=== PATIENT | female | born 1935 | race Caucasian/White ===

== ENCOUNTER → 2019-11-08 | Outpatient (CLI) | payer MEDICARE ==
--- NOTE | 2019-11-08 11:01 | XR ---
EXAMINATION TYPE: XR lumbosacral spine min 4V DATE OF EXAM: 11/08/2019 CLINICAL HISTORY: pain COMPARISON: NONE TECHNIQUE: Frontal, lateral, and oblique images of the lumbar spine are obtained. FINDINGS: There are 5 lumbar type vertebral bodies identified. The lumbar spine shows satisfactory alignment without evidence of acute fracture or dislocation. Grade 1 anterolisthesis L4 and L5 measur ing 4 mm. Vertebral body heights are within normal limits. Severe multilevel degenerative disc diseas e and spondylosis. Suspect bilateral nephrolithiasis. The overlying soft tissue appears unremarkabl e. IMPRESSION: No acute fracture or dislocation is seen in the lumbar spine.ICD 10 NO FRACTURE, INITIAL EVALUATION
== END | disposition home or self-care (01) ==
LOC: RADXRMAIN 10:34
PROVIDERS: ATTEND Internal Medicine
DX: M54.5 Low back pain (principal)
CPT/HCPCS: 72110

== ENCOUNTER → 2020-06-26 | Outpatient (CLI) | payer MEDICARE ==
--- NOTE | 2020-06-27 04:17 | MR ---
EXAMINATION TYPE: MR brain and iac wo/w con DATE OF EXAM: 06/26/2020 COMPARISON: Hearing loss HISTORY: Auditory hallucinations, bilateral hearing loss, and tinnitus. CONTRAST: Standard multiplanar, multisequence MRI departmental protocol utilizing 6.5 mL intravenous Gadavist g adolinium contrast. There is cerebral cortical atrophy. There is no mass effect nor midline shift. There is no sign of in tracranial hemorrhage. There is no evidence of acute cortical infarct. On the T2 and FLAIR images the re is abnormal increased signal around the lateral ventricles that is coalescent and measures up to 1 .5 cm. The brainstem is intact. There is no evidence of posterior fossa mass. Sella turcica is intact . There is significant thinning of the corpus callosum. There is good visualization of the internal auditory canals. There is normal appearance of the acoust ic nerve and vestibular nerves bilaterally. There is no sign of cerebellopontine angle mass. There is no evidence of cerebellar infarct. There is increased signal on the FLAIR images and T2 images in th e right mastoid sinus that could relate to mastoiditis. The contrast images show normal enhancement of the venous sinuses. There is no pathologic enhancement . IMPRESSION: Cerebral atrophy. White matter signal changes around the ventricles more likely related to chronic sm all vessel ischemia. Demyelinating disease also possible. Involvement of the corpus callosum increase s probability that this is demyelinating disease. No focal abnormality in the posterior fossa. There is probably right-sided mastoiditis.
== END | disposition home or self-care (01) ==
LOC: RADMRIMAIN 19:30
PROVIDERS: ATTEND Nurse Practitioner Family
DX: G31.9 Degenerative disease of nervous system, unspecified (principal)
CPT/HCPCS: 70553; A9585

== ENCOUNTER 2020-11-12 13:08 | Emergency (ER) | payer MEDICARE ==
[2020-11-12 13:40] VITALS: RESP 18; TEMP 97.8
--- NOTE | 2020-11-12 15:05 | CT ---
EXAMINATION TYPE: CT brain wo con DATE OF EXAM: 11/12/2020 COMPARISON: RI brain 06/26/2020 HISTORY: Fall x 2, hitting head on cement [address] DLP: 1051.4 mGycm Automated exposure control for dose reduction was used. FINDINGS: No acute intracranial hemorrhage, mass effect, or midline shift. Ventricles are normal caliber withou t hydrocephalus. Diffuse decreased attenuation within the periventricular and deep white matter bilat erally likely chronic small vessel ischemic change. Focal area of decreased attenuation within the ri ght cerebellar white matter is new compared to the prior MRI and may represent remote lacunar infarct . No evidence of acute large vessel territorial infarction. Calvarium appears intact. Visualized paranasal sinuses and mastoid air cells appear clear. Postsurgic al changes of the bilateral globes; otherwise, the globes and orbits appear unremarkable. IMPRESSION: 1. No acute intracranial process. 2. New focal area of decreased attenuation within the right cerebellar white matter which is new comp ared to the prior MRI and may represent remote lacunar infarct. Nonemergent MRI can be obtained for f urther evaluation if clinically indicated.
--- NOTE | 2020-11-12 17:28 | ED ---
General Adult HPI - General Chief complaint: Fall Stated complaint: fall Time Seen by Provider: 11/12/20 16:57 Source: patient, RN notes reviewed Mode of arrival: wheelchair Limitations: no limitations - History of Present Illness Initial comments: 85-year-old female with a past medical history of diabetes mellitus, hyperlipidemia, hypertension presents to the emergency room for a chief complaint of fall. Patient reports that 3 days ago she was out with her dog on the leash. She states she always walks back to her apartment through the grass but that day she walked on the sidewalk. Patient states she missed a small step in the sidewalk which threw her off balance. She then tripped backwards over a dog leash and fell hitting her head as well as lower back and neck. Patient also fell on her elbow but states that the pain in her elbow since improved. Patient's niece could not come get her and take her to the emergency room until today. Since the fall patient has had mild headaches with some lightheadedness. She has also had some lower back and taill bone pain. Patient did not lose consciousness in the fall nor does she take blood thinners.Patient has no other complaints at this time including shortness of breath, chest pain, abdominal pain, nausea or vomiting, or visual changes. - Related Data Home Medications Medication Instructions Recorded Confirmed Aspirin 81 mg .ROUTE DAILY 07/16/14 07/16/14 Ferrous Sulfate [Feosol] 325 mg PO DAILY 07/16/14 07/16/14 Losartan Potassium [Cozaar] 50 mg PO DAILY 07/16/14 07/16/14 Lovastatin [Mevacor] 20 mg PO HS 07/16/14 07/16/14 metFORMIN HCL ER [Glucophage Xr] 500 mg PO PC-SUPPER 07/16/14 07/16/14 Previous Rx's Medication Instructions Recorded methylPREDNISolone Dose Pack 4 mg PO DIRECTED #21 package 07/16/14 [Medrol Dose Pack] Allergies Allergy/AdvReac Type Severity Reaction Status Date / Time celecoxib [From Celebrex] Allergy Abdominal Verified 07/16/14 12:18 Pain codeine Allergy Abdominal Verified 07/16/14 12:18 Pain Review of Systems ROS Statement: Those systems with pertinent positive or pertinent negative responses have been documented in the HPI. ROS Other: All systems not noted in ROS Statement are negative. Past Medical History Past Medical History: Diabetes Mellitus, Hyperlipidemia, Hypertension History of Any Multi-Drug Resistant Organisms: None Reported Additional Past Surgical History / Comment(s): Ear Surgery Past Psychological History: No Psychological Hx Reported Past Alcohol Use History: Occasional Past Drug Use History: None Reported General Exam - General Exam Comments Initial Comments: Left upper extremity: Patient does have some minimal ecchymosis of the left elbow however no tenderness to palpation. Full range of motion of the left elbow including full flexion and extension. Remainder of the left upper extremity is nontraumatic. Right upper extremity nontraumatic. Legs are nontraumatic. No bruising of the buttock. Limitations: no limitations General appearance: alert Head exam: Present: atraumatic Eye exam: Present: normal appearance, PERRL, EOMI. Absent: scleral icterus ENT exam: Present: normal exam, mucous membranes moist Neck exam: Present: normal inspection, tenderness (mild cervical spine tenderness and paraspinal tenderness), full ROM Respiratory exam: Present: normal lung sounds bilaterally. Absent: respiratory distress, wheezes Cardiovascular Exam: Present: regular rate, normal rhythm, normal heart sounds GI/Abdominal exam: Present: soft, normal bowel sounds. Absent: distended, tenderness Back exam: Present: paraspinal tenderness (Minimal right-sided lumbar paraspinal tenderness.) Course Vital Signs 11/12/20 13:36 Temperature 97.8 F Pulse Rate 72 Respiratory 18 Rate Blood Pressure 181/62 O2 Sat by Pulse 100 Oximetry Medical Decision Making - Medical Decision Making Vitals are stable. Patient is well-appearing. Physical exam is documented. CT brain was obtained in triage. This showed no acute intercranial processes. There is a new focal area in the right cerebellar white matter to compared to June that may represent a remote lacunar infarct. Nonemergent MRI can be obtained for further evaluation if clinically indicated. I did discuss this with patient and she will follow-up with her doctor. CT cervical spine was added which showed no acute fracture or subluxation. Pelvis x-ray, lumbar spine x-ray, sacrum and coccyx x-ray showed no acute fractures. There are degenerative changes. At this time patient's mild headaches and lightheadedness are likely attributed to concussion. Recommend she get plenty of rest and drink plenty of fluids. She will follow-up with her doctor. She will take Tylenol for pain. She will return for any worsening symptoms. Disposition Clinical Impression: Fall, Head injury, Concussion Disposition: HOME SELF-CARE Condition: Good Instructions (If sedation given, give patient instructions): Concussion (ED) Additional Instructions: Take Tylenol for pain. Please rest as much as possible. Drink plenty of fluids. Follow-up with your doctor in one to 2 days. Return to the emergency room for any worsening symptoms. Is patient prescribed a controlled substance at d/c from ED?: No Referrals: Glenis Olson MD [Primary Care Provider] - 1-2 days Time of Disposition: 19:13
--- NOTE | 2020-11-12 18:28 | CT ---
EXAMINATION TYPE: CT cervical spine wo con DATE OF EXAM: 11/12/2020 COMPARISON: None available HISTORY: Fall. CT DLP: 245.4 mGycm Automated exposure control for dose reduction was used. TECHNIQUE: CT scan of the cervical spine is obtained without contrast, axial images are obtained, sa gittal and coronal reformatted images are also reviewed. FINDINGS: Cervical spine is visualized in its entirety from C1 through upper thoracic levels, demonstrates sati sfactory alignment without evidence of acute fracture or dislocation. Prevertebral soft tissue appears within normal limits. Visualized lung apices appear clear. The C1-C2 articulation is within normal limits on the coronal images. Advanced multilevel degenerative disc changes most pronounced from C4 to C7. Moderate multilevel unco vertebral hypertrophy throughout C4-C7, resulting in varying degrees of neural foraminal narrowing mo st pronounced at C4-5 and C5-6 which appears at least moderate bilaterally. IMPRESSION: No acute fracture or traumatic subluxation of the cervical spine.
--- NOTE | 2020-11-12 18:33 | XR ---
EXAMINATION TYPE: XR pelvis AP view DATE OF EXAM: 11/12/2020 CLINICAL HISTORY: Fall, low back pain TECHNIQUE: A single AP view of the pelvis is obtained. COMPARISON: None. FINDINGS: There is no acute fracture/dislocation evident in the pelvis. The hip and sacroiliac join ts appear symmetric and unremarkable. Moderate degenerative changes of the lower lumbar spine and franco ateral sacroiliac joints. Sacrum is obscured by overlying bowel gas. Degenerative changes of bilatera l hips. The overlying soft tissue appears unremarkable. IMPRESSION: There is no acute fracture or dislocation in the pelvis.
--- NOTE | 2020-11-12 18:38 | XR ---
EXAMINATION TYPE: XR lumbar spine 2 or 3V, XR sacrum coccyx DATE OF EXAM: 11/12/2020 CLINICAL HISTORY: Fall, low back pain, tailbone pain TECHNIQUE: Frontal, lateral, and oblique images of the lumbar spine are obtained. Frontal and lateral views of the sacrum and coccyx were obtained COMPARISON: Lumbar spine radiograph 11/08/2019 FINDINGS: 5 lumbar type vertebral bodies. Slight dextroscoliotic curvature. Slight retrolisthesis of L2 on L3 a nd L3 on L4. Grade 1 anterolisthesis of L4 on L5. No acute compression deformity. Moderate multilevel degenerative disc changes with disc height loss a nd anterior osteophyte formation most pronounced at L5-S1. Multilevel facet arthropathy most pronounc ed at L4-5 and L5-S1 which appears moderate to advanced. Degenerative changes of the bilateral sacroi liac joints. Sacrum is obscured by overlying bowel gas on the frontal views. No definite acute sacral or coccyx fr acture on the lateral view. Atherosclerotic calcifications of the abdominal aorta present. IMPRESSION: 1. No definite acute compression fracture of the lumbar spine. No definite acute fracture of the sacr um or coccyx on the lateral views. 2. Moderate to advanced multilevel degenerative changes of the lumbar spine. 3. Grade 1 anterolisthesis of L4 on L5.
[2020-11-12 19:30] VITALS: BP 148/81; PULSE 78
== END 2020-11-12 19:22 | disposition home or self-care (01) ==
LOC: EC 13:08
DX: S06.0X0A Concussion without loss of consciousness, initial encounter (principal); E11.9 Type 2 diabetes mellitus without complications; I10 Essential (primary) hypertension; E78.5 Hyperlipidemia, unspecified; Z79.82 Long term (current) use of aspirin; Z79.84 Long term (current) use of oral hypoglycemic drugs; Z88.6 Allergy status to analgesic agent; W01.10XA Fall on same level from slipping, tripping and stumbling with subsequent striking against unspecified object, initial encounter; Y93.01 Activity, walking, marching and hiking; Y92.480 Sidewalk as the place of occurrence of the external cause
CPT/HCPCS: 70450; 72100; 72125; 72170; 72220; 99284

== ENCOUNTER → 2020-12-07 | Outpatient (CLI) | payer MEDICARE ==
--- NOTE | 2020-12-07 10:30 | MR ---
MR brain without contrast history: Cerebellar infarct, I 63.9 Multiplanar multisequence imaging through the brain and correlated to CT brain 11/12/2020, prior brain MRI 06/26/2020 There are scattered bilateral foci of restricted diffusion which are small in size, at least 2 small foci are suspected bilaterally. Scattered and confluent hyperintensities present on inversion recover y T2-weighted sequences in the pericallosal, periventricular, subcortical white matter. There is no h emorrhage or hydrocephalus. Age-related atrophy is noted incidentally. Small areas of focal encephalo malacia present in the pericallosal region and also along the corpus callosum. The pituitary, cervica l medullary junction, cerebellopontine angles are within normal limits. There are expected vascular f low voids. Orbits show symmetric appearance. Inflammatory changes are present in the right mastoid ai r cells greater than left. Some mucosal disease also noted in the ethmoid air cells. IMPRESSION: Findings consistent with bilateral subacute infarcts, consider embolic disease. Age-relat ed atrophy and chronic small vessel ischemia, sinus disease and probable mastoiditis. Findings were r elayed telephonically to the referring clinician at the time of interpretation.
== END | disposition home or self-care (01) ==
LOC: RADMRIMAIN 08:17
PROVIDERS: ATTEND Internal Medicine
DX: I67.82 Cerebral ischemia (principal)
CPT/HCPCS: 70551

== ENCOUNTER → 2020-12-20 | Outpatient (CLI) | payer MEDICARE ==
--- NOTE | 2021-02-01 09:58 | EM ---
EVENT MONITOR The patient was monitored between December 20 and January 19, 2021. The rhythm strip revealed a sinus mechanism with a borderline first-degree AV block. No atrial fibrillation was noted. There was 1 episode of wide-complex tachycardia, rate of 96 noted on January 02 and there was 1 episode of paroxysmal atrial tachycardia on January 04, nonsustained. No symptoms were reported. REBEL / TROYN: [id number] /
== END | disposition home or self-care (01) ==
LOC: RADECHMAIN 12:25
PROVIDERS: ATTEND Psychiatry & Neurology Neurology
DX: I44.0 Atrioventricular block, first degree (principal)
CPT/HCPCS: 93270